=== PATIENT | male | born 1965 | race Caucasian/White ===

== ENCOUNTER 2025-02-07 09:56 | Emergency (ER) | payer OTHER ==
[~2025-02-07] VITALS: Ht 165.1 cm; Wt 79.4 kg
[2025-02-07 11:49] LABS: BILIRUBIN Negative (Negative); BLOOD 3+ (Negative); CLARITY Clear (Clear); COLOR Yellow (Yellow); KETONE Trace (Negative); LEUKO ESTERASE Negative (Negative); NITRITE Negative (Negative); PH 7.5 (4.5-8.0); SPECIFIC GRAVITY <= 1.005 (1.001-1.030); UROBILINOGEN 0.2 E.U./dl (0.0-1.0)
[2025-02-07 12:06] LABS: WBC 0-2 wbc/hpf (0-5)
== END 2025-02-07 12:30 | disposition home or self-care (01) ==
LOC: ED 09:56
PROVIDERS: Internal Medicine
DX: N13.9 Obstructive and reflux uropathy, unspecified (principal)